=== PATIENT | male | born 1950 | race Caucasian/White ===

== ENCOUNTER → 2018-05-15 | Emergency (ER) | payer MEDICARE, OTHER ==
[~2018-05-15] VITALS: Ht 177.8 cm; Wt 114.4 kg
[2018-05-15 10:49] LABS: MICROSCOPIC AUTO
[2018-05-15 10:50] LABS: CULTURE INDICATED? NO
[2018-05-15 11:24] VITALS: BP 142/84
== END ==
LOC: ED 11:34
DX: N40.1 Benign prostatic hyperplasia with lower urinary tract symptoms (principal); R33.8 Other retention of urine; I10 Essential (primary) hypertension; E11.9 Type 2 diabetes mellitus without complications; I25.10 Atherosclerotic heart disease of native coronary artery without angina pectoris
CPT/HCPCS: 51702; 81001; 99284